=== PATIENT | female | born 1960 | race Caucasian/White ===

== ENCOUNTER 2023-09-30 19:04 | Emergency (ER) | payer SELFPAY ==
[~2023-09-30] VITALS: Ht 167.6 cm; Wt 85.0 kg
[2023-09-30 19:07] VITALS: TEMP 97.5
[2023-09-30] MEDS ORDERED: NAPR-56 PO (20:46)
[2023-09-30 20:51] VITALS: BP 145/87; PULSE 78; RESP 16; O2SAT 100
== END 2023-09-30 20:55 | disposition home or self-care (01) ==
LOC: ER 19:05
DX: S42.294A Other nondisplaced fracture of upper end of right humerus, initial encounter for closed fracture (principal); W18.39XA Other fall on same level, initial encounter; Y93.89 Activity, other specified; Y92.89 Other specified places as the place of occurrence of the external cause; Y99.8 Other external cause status
CPT/HCPCS: 73060; 99284; A4565